=== PATIENT | male | born 1970 | race Caucasian/White ===

== ENCOUNTER 2023-08-27 09:08 | Inpatient (IN) | payer MEDICARE, OTHER ==
[~2023-08-27] VITALS: Ht 172.7 cm; Wt 148.9 kg
[2023-08-27] MEDS ORDERED: LEVOFLOXACIN 250 MG /D5W 50 ML 250 MG/50 ML PIGGYBACK IV STA (09:27)
[2023-08-27] MEDS ORDERED: LEVOFLOXACIN 750 MG /D5W 150ML 150 ML IV ONE (09:30)
[2023-08-27] MEDS ORDERED: KETOROLAC TROMETHAMINE 15 MG/ML VIAL ONE ×2 (09:35→11:12)
[2023-08-27 09:47] LABS: BASOPHILS # (AUTO) 0.1 K/uL (0.0-0.2); EOSINOPHILS % (AUTO) 0.6 % (0.0-6.0); HEMATOCRIT 43 % (39-51); HEMOGLOBIN 14.3 g/dL (13.5-17.5); LYMPHOCYTES # (AUTO) 1.5 K/uL (0.8-4.8); LYMPHOCYTES % (AUTO) 18.1 % (20.0-44.0); MEAN CORPUSCULAR HEMOGLOBIN 27 PG (26.0-33.0); MEAN CORPUSCULAR HGB CONC 34 g/dl (31.0-36.0); MEAN CORPUSCULAR VOLUME 81 fL (80-96); MONOCYTES # (AUTO) 0.7 K/uL (0.1-1.30); MONOCYTES % (AUTO) 7.8 % (2.0-12.0); NEUTROPHILS # (AUTO) 6.2 K/uL (1.8-8.9); NEUTROPHILS % (AUTO) 72.5 % (43.0-81.0); PLATELET COUNT (AUTO) 210 K/uL (150-450); RED BLOOD CELL COUNT(AUTO) 5.22 MIL/uL (4.5-6.0); RED CELL DISTRIBUTION WIDTH 14.8 % (11.5-15.0); WHITE BLOOD COUNT (AUTO) 8.5 K/uL (4.3-11.0)
[2023-08-27 09:51] LABS: APPEARANCE,URINE CLOUDY (CLEAR); BILIRUBIN,URINE NEGATIVE (NEGATIVE); BLOOD, URINE NEGATIVE Ery/uL (NEGATIVE); COLOR,URINE DARK YELLOW (YELLOW); KETONES,URINE NEGATIVE (NEGATIVE); LEUKOCYTE ESTERASE ,URINE NEGATIVE (NEGATIVE); NITRITE, URINE NEGATIVE (NEGATIVE); PH,URINE 5.5 (5.0-8.0); PROTEIN,URINE 1+ mg/dl (NEGATIVE); UGLUCOSE NEGATIVE (NEGATIVE); UROBILINOGEN,URINE 0.2 EU/dL (0.2)
[2023-08-27] MEDS: CEFEPIME 2 GM in IV D5W 100 ML IV STA (09:56)
[2023-08-27 09:57] LABS: ADD URINE CULTURE NO; BACTERIA,URINE None seen /HPF (None Seen); RBC,URINE 0-2 /HPF (0-2); SQUAMOUS EPITHELIAL CELL,UR Few /HPF (None Seen); URINE AMORPHOUS URATE Many /HPF (None Seen); WBC,URINE 0-2 /HPF (0-3)
[2023-08-27 10:02] LABS: CALCIUM, SERUM 9.2 mg/dL (8.5-10.1); CREATININE 0.7 mg/dL (0.6-1.3); POTASSIUM 4.1 mmol/L (3.5-5.1)
[2023-08-27 10:04] LABS: ALBUMIN 3.5 g/dL (3.4-5.0); BILIRUBIN,DIRECT 0.2 mg/dL (0.0-0.2); BILIRUBIN,TOTAL 0.6 mg/dL (0.2-1.0); TOTAL PROTEIN, SERUM 7.3 g/dL (6.4-8.2)
[2023-08-27] MEDS: VANCOMYCIN 1 GM in IV D5W 250 ML IV ONE (10:35)
[2023-08-27] MEDS: KETOROLAC TROMETHAMINE 15 MG/ML VIAL IV ONE (11:18)
[2023-08-27] MEDS ORDERED: TAMS-12 PO (11:44)
[2023-08-27] MEDS ORDERED: GABA300C PO (11:44)
[2023-08-27] MEDS ORDERED: BUME1TAB8 PO (11:44)
[2023-08-27] MEDS ORDERED: DUTA0.5C37 PO (11:44)
[2023-08-27] MEDS ORDERED: PANT40TA49 PO (11:44)
[2023-08-27] MEDS ORDERED: NYST15PO3 TP (11:44)
[2023-08-27] MEDS ORDERED: NIFE10CA2 PO (11:44)
[2023-08-27] MEDS ORDERED: EMPA25TA PO (11:44)
[2023-08-27] MEDS ORDERED: CHLO1CAP32 PO (11:44)
[2023-08-27] MEDS ORDERED: LORA-259 PO (11:44)
[2023-08-27] MEDS ORDERED: INSU100I43 SQ (11:44)
[2023-08-27] MEDS ORDERED: SPIR25TA6 PO (11:44)
[2023-08-27] MEDS ORDERED: ROSU40TA23 PO (11:44)
[2023-08-27] MEDS ORDERED: ALLO100T PO (11:44)
[2023-08-27] MEDS ORDERED: METO100C PO (11:44)
[2023-08-27] MEDS ORDERED: ARIP10TA57 PO (11:44)
[2023-08-27] MEDS ORDERED: EDARBYCLOR PO (11:44)
[2023-08-27] MEDS ORDERED: OXYC1TAB12 PO (11:44)
[2023-08-27] MEDS ORDERED: NYST15OI TP (11:44)
[2023-08-27 14:00] VITALS: BP 145/72; TEMP 98.2; O2SAT 98
[2023-08-27 16:00] VITALS: BP 138/84; TEMP 97.9; O2SAT 99
[2023-08-27] MEDS ORDERED: DEXTROSE 50%-WATER 50 ML DISP.SYRIN IV PRN (16:00)
[2023-08-27] MEDS ORDERED: LORAZEPAM 1 MG TABLET PO PRN (16:00)
[2023-08-27] MEDS ORDERED: MAGNESIUM HYDROXIDE 30 ML UDC PO PRN (16:00)
[2023-08-27] MEDS ORDERED: Z GUARD REMEDY 4 OZ OINT TP PRN (16:00)
[2023-08-27] MEDS ORDERED: ACETAMINOPHEN 325 MG TABLET PO PRN (16:00)
[2023-08-27] MEDS ORDERED: ONDANSETRON HCL/PF 4 MG/2 ML VIAL IVP PRN (16:00)
[2023-08-27] MEDS ORDERED: IV NS 0.9% 250 ML IV ONE (16:12)
[2023-08-27] MEDS ORDERED: IOHEXOL-300 100 ML VIAL IV ONE (16:12)
[2023-08-27] MEDS ORDERED: CT SWABBABLE VALVE TRANS SET 1 EA INFUS.SET MC ONE (16:12)
[2023-08-27] MEDS: LORAZEPAM 1 MG TABLET PO ONE (16:30)
[2023-08-27] MEDS: PHENAZOPYRIDINE HCL 200 MG TABLET PO SCH (16:31)
[2023-08-27] MEDS: CHLORDIAZEPOXIDE HCL 5 MG CAPSULE PO SCH (17:00)
[2023-08-27] MEDS ORDERED: CEFEPIME 2 GM in IV D5W 100 ML IV SCH (17:00)
[2023-08-27] MEDS: BLOOD SUGAR DIAGNOSTIC 1 EACH STRIP IN SCH (17:27)
[2023-08-27] MEDS: VANCOMYCIN 1 GM in IV D5W 250ml IV ONE (17:35)
[2023-08-27 20:00] VITALS: BP 150/83; TEMP 98.1; O2SAT 95
[2023-08-27 20:12] VITALS: BP 150/83; TEMP 98.1; O2SAT 95
[2023-08-27] MEDS: DOXYCYCLINE 100 MG in IV D5W 100 ML IV SCH (20:57)
[2023-08-27] MEDS: TAMSULOSIN 0.4 MG CAP.SR.24H PO SCH (21:27)
[2023-08-27] MEDS: INSULIN REGULAR, HUMAN 100 UNIT/ML 3 ML VIAL SQ PRN (21:39)
[2023-08-27] MEDS: CEFEPIME 2 GM in IV D5W 100 ML IV SCH (22:00)
[2023-08-27 22:07] LABS: FREE PSA 0.14 ng/mL (0.00-45); PROSTATE SPECIFIC ANTIGEN SCR 0.51 ng/mL (0.00-4.00)
[2023-08-28] MEDS ORDERED: VANCOMYCIN HCL 1.25 GM in IV D5W 250 ML IV SCH (01:00)
[2023-08-28] MEDS: HYDROCODONE/APAP 10/325MG TABLET PO PRN (05:39)
[2023-08-28 08:05] VITALS: BP 140/90; TEMP 98.1; O2SAT 96
[2023-08-28] MEDS: ALLOPURINOL 100 MG TABLET PO SCH (08:13)
[2023-08-28] MEDS: GABAPENTIN 300 MG CAPSULE PO SCH (08:13)
[2023-08-28] MEDS: BUMETANIDE (1 MG) 1 MG TABLET PO SCH (08:13)
[2023-08-28] MEDS: ATORVASTATIN 40 MG TABLET PO SCH (08:13)
[2023-08-28] MEDS: ARIPIPRAZOLE 5 MG TABLET PO SCH (08:13)
[2023-08-28] MEDS: SPIRONOLACTONE 25 MG TABLET PO SCH (08:13)
[2023-08-28] MEDS: METOPROLOL SUCCINATE 50 MG TAB.SR.24H PO SCH (08:14)
[2023-08-28] MEDS: PANTOPRAZOLE 40 MG TABLET.DR PO SCH (08:14)
[2023-08-28] MEDS: DUTASTERIDE (0.5 MG) 0.5 MG CAPSULE PO SCH (08:14)
[2023-08-28] MEDS: EMPAGLIFLOZIN 25 MG TABLET PO SCH (08:16)
[2023-08-28] MEDS: LIDOCAINE 2% JEL UROJET 10 ML MM ONE (09:00)
[2023-08-28] MEDS: OLANZAPINE 10 MG VIAL IM STA (09:50)
[2023-08-28] MEDS: LORAZEPAM INJ 2 MG/ML VIAL IM STA (09:51)
[2023-08-28 14:05] LABS: HIV-1 p24 ANTIGEN NON REACTIVE (NONREACTIVE); HIV-1/2 ANTIBODY NON REACTIVE (NONREACTIVE)
[2023-08-28 16:53] VITALS: BP 154/89; TEMP 97.7; O2SAT 96
[2023-08-28] MEDS: OLANZAPINE 5 MG TABLET PO SCH (18:30)
[2023-08-28] MEDS ORDERED: OLANZAPINE ZYDIS 5 MG TAB.RAPDIS PO PRN (19:00)
[2023-08-28 20:00] VITALS: BP 140/68; TEMP 98.2; O2SAT 100
[2023-08-28] MEDS: METOPROLOL SUCCINATE 50 MG TAB.SR.24H PO ONE (20:46)
[2023-08-28] MEDS: LORAZEPAM INJ 2 MG/ML VIAL IM ONE (21:23)
[2023-08-28] MEDS: DIAZEPAM 5 MG/ML 2 ML DISP.SYRIN IM ONE (21:23)
[2023-08-29 08:00] VITALS: BP 132/81; TEMP 97.5; O2SAT 97
[2023-08-29] MEDS: DOXYCYCLINE HYCLATE (100 MG) 100 MG TABLET PO SCH (08:31)
[2023-08-29 11:29] LABS: BASOPHILS % (AUTO) 0.6 % (0.0-2.0); EOSINOPHILS # (AUTO) 0.2 K/uL (0.0-0.7); EOSINOPHILS % (AUTO) 2.4 % (0.0-6.0); HEMATOCRIT 44 % (39-51); HEMOGLOBIN 14.3 g/dL (13.5-17.5); LYMPHOCYTES # (AUTO) 1.6 K/uL (0.8-4.8); LYMPHOCYTES % (AUTO) 22.7 % (20.0-44.0); MEAN CORPUSCULAR HEMOGLOBIN 27 PG (26.0-33.0); MEAN CORPUSCULAR HGB CONC 33 g/dl (31.0-36.0); MEAN CORPUSCULAR VOLUME 83 fL (80-96); MONOCYTES # (AUTO) 0.6 K/uL (0.1-1.30); MONOCYTES % (AUTO) 8.8 % (2.0-12.0); NEUTROPHILS # (AUTO) 4.6 K/uL (1.8-8.9); NEUTROPHILS % (AUTO) 65.5 % (43.0-81.0); PLATELET COUNT (AUTO) 222 K/uL (150-450); RED BLOOD CELL COUNT(AUTO) 5.27 MIL/uL (4.5-6.0); RED CELL DISTRIBUTION WIDTH 15.1 % (11.5-15.0)
[2023-08-29 12:03] LABS: CALCIUM, SERUM 9.2 mg/dL (8.5-10.1); CREATININE 0.8 mg/dL (0.6-1.3); MAGNESIUM 1.9 mg/dL (1.8-2.4); POTASSIUM 3.8 mmol/L (3.5-5.1)
[2023-08-29 16:00] VITALS: BP 148/79; TEMP 97.7; O2SAT 100
[2023-08-29] MEDS: OLANZAPINE 5 MG TABLET PO SCH (18:30)
[2023-08-29 20:00] VITALS: BP 156/83; TEMP 98.4; O2SAT 94
[2023-08-30 08:00] VITALS: BP 156/82; TEMP 97.9; O2SAT 97
[2023-08-30] MEDS: KETOROLAC TROMETHAMINE INJ 30 MG/ML VIAL IM ONE (10:53)
[2023-09-01 11:10] LABS: RAPID PLASMA REAGIN QUAL. NONREACTIVE (NONREACTIVE)
== END 2023-08-30 13:00 | disposition left against medical advice (07) | DRG 696 ==
LOC: ER 09:16 → MED 13:28
PROVIDERS: ADMIT Nurse Practitioner Family; ATTEND Nurse Practitioner Family
DX: R30.9 Painful micturition, unspecified (principal); K86.1 Other chronic pancreatitis; Z68.42 Body mass index [BMI] 45.0-49.9, adult; F41.9 Anxiety disorder, unspecified; E11.9 Type 2 diabetes mellitus without complications; Z79.4 Long term (current) use of insulin; E66.01 Morbid (severe) obesity due to excess calories; Z79.84 Long term (current) use of oral hypoglycemic drugs; Z53.29 Procedure and treatment not carried out because of patient's decision for other reasons; Z79.899 Other long term (current) drug therapy; I50.9 Heart failure, unspecified; Z87.442 Personal history of urinary calculi; F22 Delusional disorders; F29 Unspecified psychosis not due to a substance or known physiological condition; F39 Unspecified mood [affective] disorder; F31.9 Bipolar disorder, unspecified
CPT/HCPCS: 36415; 80048-TC; 80076-TC; 81001; 82962-TC; 83605-TC; 83690-TC; 83735-TC; 84153-TC; 84154-TC; 85025-TC; 86592; 86593; 87040-TC; 87086-TC; 87806; A4223; G0378; J0692; J1815; J1885; J2060; J3360; J3370; J3490; J7050; J7060; Q9967

== ENCOUNTER 2023-12-09 16:42 | Emergency (ER) | payer MEDICARE, OTHER ==
[~2023-12-09] VITALS: Ht 170.2 cm; Wt 149.7 kg
[~2023-12-09 16:42] MED LIST: ALLO100T PO; ARIP10TA57 PO; BUME1TAB8 PO; CHLO1CAP32 PO; DUTA0.5C37 PO; EDARBYCLOR PO; EMPA25TA PO; GABA300C PO; INSU100I43 SQ; LORA-259 PO; METO100C PO; NIFE10CA2 PO; NYST15OI TP; NYST15PO3 TP; OXYC1TAB12 PO; PANT40TA49 PO; ROSU40TA23 PO; SPIR25TA6 PO; TAMS-12 PO
[2023-12-09 17:35] LABS: APPEARANCE,URINE CLEAR (CLEAR); BILIRUBIN,URINE NEGATIVE (NEGATIVE); BLOOD, URINE NEGATIVE Ery/uL (NEGATIVE); COLOR,URINE YELLOW (YELLOW); KETONES,URINE 1+ mg/dL (NEGATIVE); LEUKOCYTE ESTERASE ,URINE NEGATIVE (NEGATIVE); NITRITE, URINE NEGATIVE (NEGATIVE); PROTEIN,URINE TRACE mg/dl (NEGATIVE); UGLUCOSE 2+ mg/dL (NEGATIVE); UROBILINOGEN,URINE 0.2 EU/dL (0.2)
[2023-12-09 17:36] LABS: ADD URINE CULTURE NO; BACTERIA,URINE Few /HPF (None Seen); SQUAMOUS EPITHELIAL CELL,UR Rare /HPF (None Seen)
[2023-12-09 17:38] LABS: WBC,URINE 0-2 /HPF (0-3)
[2023-12-09] MEDS ORDERED: AMOX-430 PO (17:51)
[2023-12-09 18:55] VITALS: BP 171/98; TEMP 98.3; O2SAT 95
== END 2023-12-09 18:50 | disposition home or self-care (01) ==
LOC: ER 17:00
DX: N39.0 Urinary tract infection, site not specified (principal); R10.32 Left lower quadrant pain; E11.9 Type 2 diabetes mellitus without complications; I50.9 Heart failure, unspecified; Z79.84 Long term (current) use of oral hypoglycemic drugs; Z79.899 Other long term (current) drug therapy; Z60.2 Problems related to living alone
CPT/HCPCS: 81001

== ENCOUNTER 2024-04-14 02:45 | Emergency (ER) | payer MEDICARE, OTHER ==
[~2024-04-14] VITALS: Ht 170.2 cm; Wt 136.1 kg
[~2024-04-14 02:45] MED LIST changes: +AMOX-430 PO
[2024-04-14 03:51] LABS: BASOPHILS # (AUTO) 0.1 K/uL (0.0-0.2); BASOPHILS % (AUTO) 0.8 % (0.0-2.0); EOSINOPHILS # (AUTO) 0.2 K/uL (0.0-0.7); EOSINOPHILS % (AUTO) 2.5 % (0.0-6.0); HEMATOCRIT 46 % (39-51); HEMOGLOBIN 15.3 g/dL (13.5-17.5); LYMPHOCYTES # (AUTO) 2.3 K/uL (0.8-4.8); LYMPHOCYTES % (AUTO) 29.2 % (20.0-44.0); MEAN CORPUSCULAR HEMOGLOBIN 27 PG (26.0-33.0); MEAN CORPUSCULAR HGB CONC 33 g/dl (31.0-36.0); MEAN CORPUSCULAR VOLUME 82 fL (80-96); MONOCYTES # (AUTO) 0.7 K/uL (0.1-1.30); MONOCYTES % (AUTO) 8.3 % (2.0-12.0); NEUTROPHILS # (AUTO) 4.7 K/uL (1.8-8.9); NEUTROPHILS % (AUTO) 59.2 % (43.0-81.0); PLATELET COUNT (AUTO) 222 K/uL (150-450); RED BLOOD CELL COUNT(AUTO) 5.62 MIL/uL (4.5-6.0); RED CELL DISTRIBUTION WIDTH 15.7 % (11.5-15.0)
[2024-04-14 04:01] LABS: CALCIUM, SERUM 9.5 mg/dL (8.5-10.1); CARBON DIOXIDE 25 mmol/L (21-32); CHLORIDE 104 mmol/L (98-107); CREATININE 0.9 mg/dL (0.6-1.3); GLUCOSE 98 mg/dL (74-106); POTASSIUM 3.9 mmol/L (3.5-5.1); SODIUM SERUM 137 mmol/L (136-145); UREA NITROGEN, BLOOD 17 mg/dL (7-18)
[2024-04-14 04:13] LABS: INR 0.99 (0.91-1.10); PARTIAL THROMBOPLASTIN TIME 27.6 SEC (24.3-34.3); PROTHROMBIN TIME 10.5 SECS (9.2-11.1)
[2024-04-14 04:14] LABS: ALANINE AMINOTRANSFERASE 37 U/L (12-78); ALBUMIN 3.8 g/dL (3.4-5.0); ALKALINE PHOSPHATASE 128 U/L (46-116); ASPARTATE AMINOTRANSFERASE 18 U/L (15-37); BILIRUBIN,DIRECT 0.1 mg/dL (0.0-0.2); BILIRUBIN,TOTAL 0.3 mg/dL (0.2-1.0); NT-PRO BNP 24 pg/mL (0-125); TOTAL PROTEIN, SERUM 7.5 g/dL (6.4-8.2)
[2024-04-14 07:47] VITALS: BP 149/95; TEMP 98.1; O2SAT 97
== END 2024-04-14 07:47 | disposition home or self-care (01) ==
LOC: ER 02:59
DX: K62.5 Hemorrhage of anus and rectum (principal); E11.9 Type 2 diabetes mellitus without complications; I50.9 Heart failure, unspecified; Z79.84 Long term (current) use of oral hypoglycemic drugs; Z79.899 Other long term (current) drug therapy
CPT/HCPCS: 36415; 71045-TC; 80048-TC; 80076-TC; 83880; 84484-TC; 85025-TC; 85730-TC; 86850-TC